=== PATIENT | female | born 1960 | race Hispanic/Latino ===

== ENCOUNTER 2017-07-17 16:18 | Emergency (ER) | payer OTHER, SELFPAY ==
[2017-07-17] MEDS ORDERED: Acetaminophen 500 MG TAB ONE (17:52)
== END 2017-07-17 18:07 | disposition home or self-care (01) ==
LOC: SCSER 16:18
DX: J11.1 Influenza due to unidentified influenza virus with other respiratory manifestations (principal)
CPT/HCPCS: 99283

== ENCOUNTER 2024-03-07 14:40 | Outpatient (CLI) | payer OTHER | END 2024-03-07 14:41 | disposition home or self-care (01) | LOC: BICULT 14:40 | PROVIDERS: ATTEND Otolaryngology Otolaryngic Allergy | DX: E04.1 Nontoxic single thyroid nodule (principal); Z90.89 Acquired absence of other organs | CPT/HCPCS: 76536 ==